=== PATIENT | male | born 1970 | race Caucasian/White ===

== ENCOUNTER 2025-05-27 04:49 | Emergency (ER) | payer MEDICAID ==
[~2025-05-27] VITALS: Ht 177.8 cm; Wt 66.8 kg
[2025-05-27 05:39] LABS: AMPHETAMINES, URINE NEGATIVE (NEGATIVE); BARBITURATES, URINE NEGATIVE (NEGATIVE); BENZODIAZEPINE, URINE NEGATIVE (NEGATIVE); CANNABINOID, URINE NEGATIVE (NEGATIVE); COCAINE, URINE NEGATIVE (NEGATIVE); ECSTASY, URINE NEGATIVE (NEGATIVE); FENTANYL, URINE NEGATIVE (NEGATIVE); METHADONE, URINE NEGATIVE (NEGATIVE); OPIATES, URINE NEGATIVE (NEGATIVE); OXYCODONE, URINE NEGATIVE (NEGATIVE); PHENCYCLIDINE, URINE NEGATIVE (NEGATIVE)
[2025-05-27 05:58] LABS: BASOPHILS 0.5 % (0.2-1.2); EOSINOPHILS 2.0 % (0.8-7.0); LYMPHOCYTES 23.3 % (21.8-53.1); MCH 28.6 PG (25.7-32.2); MCHC 33.7 g/dL (32.3-36.5); MCV 85.0 fL (79.0-92.2); MONOCYTES 7.9 % (5.3-12.2); NEUTROPHILS 66.0 % (34.0-67.9); RBC 4.26 M/uL (4.63-6.08)
[2025-05-27 06:28] LABS: ALCOHOL, MEDICAL 103 ng/dL (<3); ALT (SGPT) 29 U/L (14-59); AST (SGOT) 36 U/L (15-37); GLOMERULAR FILTRATION RATE,EST 124 mL/min (>60); PROTEIN, TOTAL 6.9 g/dL (6.4-8.2); TSH, 3RD GENERATION 1.062 uIU/mL (0.358-3.740); UREA NITROGEN 10 mg/dL (7-18)
[2025-05-27 07:45] VITALS: BP 117/65
== END 2025-05-27 08:15 | disposition home or self-care (01) ==
LOC: ED 04:49 → EDBD 04:49 → ED 04:49
PROVIDERS: Internal Medicine
DX: R45.851 Suicidal ideations (principal); S90.425A Blister (nonthermal), left lesser toe(s), initial encounter; S90.424A Blister (nonthermal), right lesser toe(s), initial encounter; X58.XXXA Exposure to other specified factors, initial encounter; Z59.00 Homelessness unspecified
CPT/HCPCS: 36415; 80053; 80307; 84443; 85025; 99285; G0480